=== PATIENT | male | born 1995 | race Caucasian/White ===

== ENCOUNTER 2016-06-17 23:01 | Observation (INO) | payer OTHER ==
[~2016-06-17] VITALS: Ht 170.2 cm; Wt 71.4 kg
[2016-06-17] MEDS ORDERED: ONDANSETRON 2 MG/ML (Z0FRAN) 2 ML VIAL IV ONE (23:20)
[2016-06-17 23:37] LABS: BASOPHILS % (AUTO) 0 % (0-2); EOSINOPHILS % (AUTO) 0 % (0-4); LYMPHOCYTES # (AUTO) 1.7 X10^3; MEAN CORPUSCULAR HEMOGLOBIN 28.5 PG (26.0-34.0); MEAN CORPUSCULAR HGB CONC 35.4 g/dL (31.0-37.0); MEAN CORPUSCULAR VOLUME 81 FL (80-100); MEAN PLATELET VOLUME 10.7 FL (6.0-9.5); MONOCYTES # (AUTO) 0.4 X10^3; MONOCYTES % (AUTO) 6 % (3-11); NEUTROPHILS # (AUTO) 4.8 X10^3; NEUTROPHILS % (AUTO) 69 % (51-67); PLATELET COUNT 286 10^3uL (150-450); WHITE BLOOD COUNT 6.98 10^3uL (4.0-11.0)
[2016-06-17 23:54] LABS: ALBUMIN 5.3 g/dL (3.4-5.0); ALKALINE PHOSPHATASE 89 U/L (38-126); ANION GAP 23.2 MEQ/L (3-15); BUN/CREATININE RATIO 14 (10-20); CALCULATED IONIZED CALCIUM 3.6 mg/dL (3.8-4.6); TOTAL PROTEIN 8.9 g/dL (6.4-8.5)
[2016-06-18] MEDS ORDERED: MULTIVITAMIN INJ 10 ML, THIAMINE INJ 100 MG, MAGNESIUM SULFATE 1GM VIAL 2 GM in D5LR 1,... IV SCH (01:24)
[2016-06-18] MEDS ORDERED: ACETAMINOPHEN 325 MG TAB (TYLENOL) PO PRN (01:25)
[2016-06-18] MEDS ORDERED: ONDANSETRON 2 MG/ML (Z0FRAN) 2 ML VIAL IV PRN (01:25)
[2016-06-18] MEDS ORDERED: IBUPROFEN 600 MG (MOTRIN) TAB PO PRN (01:25)
[2016-06-18] MEDS ORDERED: THIAMINE 100 MG/ML (VITAMIN B1) 2 ML VIAL IM SCH (01:25)
[2016-06-18 01:34] VITALS: BP 127/75
[2016-06-18 01:36] VITALS: BP 127/75
[2016-06-18] MEDS ORDERED: MAGNESIUM SULFATE 1 GM/2 ML VIAL ONE (01:53)
[2016-06-18] MEDS ORDERED: MULTIVITAMINS (MVI) 2 5 ML VIALS IV ONE (01:53)
[2016-06-18] MEDS ORDERED: D5LR 1,000 ML IV ONE (01:53)
[2016-06-18 06:35] LABS: BASOPHILS % (AUTO) 0 % (0-2); EOSINOPHILS % (AUTO) 0 % (0-4); LYMPHOCYTES # (AUTO) 1.9 X10^3; MEAN CORPUSCULAR HEMOGLOBIN 28.3 PG (26.0-34.0); MEAN CORPUSCULAR HGB CONC 34.9 g/dL (31.0-37.0); MEAN CORPUSCULAR VOLUME 81 FL (80-100); MEAN PLATELET VOLUME 10.3 FL (6.0-9.5); MONOCYTES # (AUTO) 0.4 X10^3; MONOCYTES % (AUTO) 5 % (3-11); NEUTROPHILS # (AUTO) 5.3 X10^3; NEUTROPHILS % (AUTO) 70 % (51-67); PLATELET COUNT 237 10^3uL (150-450); WHITE BLOOD COUNT 7.57 10^3uL (4.0-11.0)
[2016-06-18 07:10] LABS: ALBUMIN 3.9 g/dL (3.4-5.0); ANION GAP 17.3 MEQ/L (3-15); CALCULATED IONIZED CALCIUM 3.9 mg/dL (3.8-4.6); TOTAL PROTEIN 6.4 g/dL (6.4-8.5)
[2016-06-18] MEDS ORDERED: SODIUM CHLORIDE FLUSH 3 ML SYR ONE (07:21)
[2016-06-18 08:00] VITALS: BP 120/57
[2016-06-18] MEDS ORDERED: FAMOTIDINE 20 MG (PEPCID) TABLET PO SCH (09:00)
[2016-06-21] MEDS ORDERED: THIAMINE 100 MG (VITAMIN B-1) TAB PO SCH (08:00)
[2016-06-21] MEDS ORDERED: MULTIVITAMIN W/MINERALS (THERAGRAN M) TABLET PO SCH (08:00)
== END 2016-06-18 10:05 | disposition home or self-care (01) ==
LOC: ED 23:06 → MED/SURG 06-18 00:50
PROVIDERS: ADMIT Family Medicine; ATTEND Family Medicine
DX: F10.120 Alcohol abuse with intoxication, uncomplicated (principal); Y90.8 Blood alcohol level of 240 mg/100 ml or more; E86.0 Dehydration; L70.9 Acne, unspecified
CPT/HCPCS: 36415; 80053; 80320; 80329; 85025; 96361; 96365; 96366; 96372; 96375; 99218; 99284; J2405; J3411; J3475; J7030; 96374

== ENCOUNTER → 2016-06-17 | Outpatient (CLI) | payer OTHER ==
[~2016-06-17] MED LIST: MINO75CA PO; No home meds
== END ==
LOC: EMS 23:10
PROVIDERS: ATTEND Family Medicine
DX: F10.129 Alcohol abuse with intoxication, unspecified (principal)